=== PATIENT | female | born 1975 | race Caucasian/White ===

== ENCOUNTER 2019-12-03 08:49 | Outpatient (CLI) | payer OTHER, SELFPAY ==
--- NOTE | ~2019-12-03 | MM_ITS ---
EXAMINATION: MM screening [facility] BI w [facility] HISTORY: Screening mammogram TECHNIQUE: Craniocaudal and mediolateral oblique 3-D tomosynthesis images were obtained and synthetic 2-D images were generated. CAD analysis was submitted and interpreted. COMPARISON: 11/27/2018, 10/20/2017, 08/05/2016 BREAST PARENCHYMAL COMPOSITION: There are scattered areas of fibroglandular density. FINDINGS: There are stable asymmetries of the breasts. There is no evidence of suspicious mass, calci fication, or architectural distortion to suggest malignancy in either breast. There has been no suspi cious interval change. IMPRESSION: 1. No mammographic evidence of malignancy. 2. Recommend routine screening mammography in one year. BI-RADS Category 2: Benign finding(s). Reviewed, dictated and finalized at location A.
== END 2019-12-03 08:50 | disposition home or self-care (01) ==
LOC: ANHIMG 08:52
PROVIDERS: PCP Obstetrics & Gynecology; Visit Provider Obstetrics & Gynecology
DX: Z12.31 Encounter for screening mammogram for malignant neoplasm of breast (principal)
CPT/HCPCS: 77063; 77067

== ENCOUNTER 2020-05-29 14:29 | Outpatient (CLI) | payer OTHER, SELFPAY ==
[2020-05-31 01:53] LABS: SARS-CoV-2 RNA PCR Negative
== END 2020-05-29 14:30 | disposition home or self-care (01) ==
LOC: CHSLAB 14:31
PROVIDERS: PCP Family Medicine; Visit Provider Family Medicine
DX: Z20.828 Contact with and (suspected) exposure to other viral communicable diseases (principal)
CPT/HCPCS: 87635; C9803; U0003

== ENCOUNTER 2020-06-10 09:38 | Outpatient (CLI) | payer OTHER, SELFPAY ==
[2020-06-11 14:24] LABS: SARS-CoV-2 RNA PCR Negative
== END 2020-06-10 09:39 | disposition home or self-care (01) ==
LOC: CHSLAB 09:39
PROVIDERS: PCP Family Medicine; Visit Provider Family Medicine
DX: Z20.828 Contact with and (suspected) exposure to other viral communicable diseases (principal)
CPT/HCPCS: 87635; C9803; U0003

== ENCOUNTER 2020-12-08 15:29 | Outpatient (CLI) | payer OTHER, SELFPAY ==
--- NOTE | ~2020-12-08 | MM_ITS ---
EXAMINATION: [place] [facility] [place] HISTORY: Screening TECHNIQUE: Craniocaudal and mediolateral oblique 3-D tomosynthesis images were obtained and synthetic 2-D images were generated. CAD analysis was submitted and interpreted. COMPARISON: Comparison to multiple prior studies sequentially, with oldest reviewed study dated 05/13. BREAST PARENCHYMAL COMPOSITION: Breast composed of scattered areas of fibroglandular density. FINDINGS: There is no evidence of suspicious mass, calcification, or architectural distortion to sugg est malignancy in either breast. There has been no suspicious interval change. IMPRESSION: 1. No mammographic evidence of malignancy. 2. Recommend routine screening mammography in one year. BI-RADS Category 1: Negative Reviewed, dictated and finalized at location A.
== END 2020-12-08 15:30 | disposition home or self-care (01) ==
LOC: ANHIMG 15:33
PROVIDERS: PCP Family Medicine; Visit Provider Obstetrics & Gynecology
DX: Z12.31 Encounter for screening mammogram for malignant neoplasm of breast (principal)
CPT/HCPCS: 77063; 77067

== ENCOUNTER 2021-02-04 18:58 | Outpatient (CLI) | payer OTHER, SELFPAY ==
--- NOTE | ~2021-02-04 | XR_ITS ---
EXAMINATION: XR shoulder RT min 2V DATE: 02/04/2021 19:22 INDICATION: Chronic right shoulder pain TECHNIQUE: AP internally and externally rotated, AP oblique externally rotated and transscapular Y vi ews of the right shoulder were obtained. COMPARISON: None FINDINGS: Normal alignment. No fracture. Glenohumeral joint is normal. Mild acromioclavicular osteoarthritis w ith small heterotopic ossicle along the dorsal joint capsule. Soft tissues are unremarkable. Visualiz ed portions of the lungs are clear. IMPRESSION: Mild right acromioclavicular osteoarthritis. Reviewed, dictated and finalized at location A.
== END 2021-02-04 18:59 | disposition home or self-care (01) ==
LOC: CHSIMG 18:59
PROVIDERS: PCP Family Medicine; Visit Provider Family Medicine
DX: M25.511 Pain in right shoulder (principal)
CPT/HCPCS: 73030

== ENCOUNTER 2021-02-17 16:06 | Outpatient (RCR) | payer OTHER, SELFPAY ==
--- NOTE | 2021-02-19 13:59 | PTOPEVAL ---
Thank you for referring Lucero Rivas to [facility].? The patient is scheduled to be seen for therapy? __2__x/week for 8 visits. Please review, sign, date and return this plan of care JEN. I agree with and certify that the following plan of care is medically necessary. Referring Physician Date Admitting Provider: Attending Provider: Kareem Carson MD Referring Provider: *PT Outpatient Evaluation Start: 02/17/21 16:31 Freq: Status: Active Protocol: Document 02/17/21 16:31 ISAK (Rec: 02/17/21 17:35 ISAK [id number]) Therapy Assessment Status Assessment Status Assessment Status Evaluation Evaluation Information Problem Diagnosis right shoulder pain Onset 10/27/20 Subjective Information Pt. reports that she developed Query Text:As Reported By Patient/ shoulder pain about 4-5 Family months ago. She reports it has worsened over that duration and will radiate in the neck and hand. She reports that her pain irina wake her at night. pt. is taking tramadol and flexeril to help her sleep. 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 She reports she cannot hold babies in her right arm due to pain. She reports that her goal for therapy is to reduce her right shoulder pain. Prior Level of Function Activity Level (Last 3 Months) Occupation daycare worker Hand Dominance Right Activity of Daily Living Ability Independent Indoor/Home Mobility Independent Community Mobility Independent Stairs Ability Independent Functional Cognition (Planning, Shopping Independent , Taking Medications) Cooking Yes Cleaning Yes Laundry Yes Shopping Yes Driving Yes Pain Assessment Timing of Pain Assessment Timing of Pain Assessment Pre-Treatment Pain Scale Pain Scale Used Numeric (1 - 10) Self Report Pain Assessment Right Shoulder(s) Reported Pain Level 5 Pain Description Aching,Stabbing Pain Radiation Right Arm Pain Frequency Continuous Pain Aggravating Factors Lifting Other Pain Aggravating Factors reaching behind her back Pain Score Pain Score 5: Self Report Interventions Used Interventions U
--- NOTE | 2021-02-24 18:11 | PCPTNOTE ---
On 02/24/21, the student, [Estela Kamara, SPT], provided care and completed [facility]a documentation on this patient. I have reviewed the student's documentation and agree with the findings.
--- NOTE | 2021-04-13 14:57 | PCPTNOTE ---
Mr. Rivas attended a total of 5 treatment sessions from 02/17/21 to 03/17/21. She has failed to return to the clinic and contacted the clinic reporting excellent progress and requesting discharge. She will be discharged from our care. Refer to last daily note for pt. discharge status. Masood Chi, MPT
== END 2021-03-17 15:28 | disposition home or self-care (01) ==
LOC: CHSPT 16:06
PROVIDERS: PCP Family Medicine; Visit Provider Family Medicine
DX: M25.511 Pain in right shoulder (principal)
CPT/HCPCS: 97014; 97110; 97140; 97161; G0283

== ENCOUNTER 2021-12-14 08:38 | Outpatient (CLI) | payer BC, SELFPAY ==
--- NOTE | ~2021-12-14 | MM_ITS ---
EXAMINATION: MM screening [facility] HISTORY: Screening mammogram TECHNIQUE: Craniocaudal and mediolateral oblique 3-D tomosynthesis images were obtained and synthetic 2-D images were generated. CAD analysis was submitted and interpreted. COMPARISON: No prior mammogram is available for comparison at this institution. BREAST PARENCHYMAL COMPOSITION: There are scattered areas of fibroglandular density. 6 mm FINDINGS: Questionable spiculated opacity in the outer mid right breast (MLO Tomosynthesis image 21/ 3). Diagnostic right mammogram and right breast ultrasound examination are recommended. Otherwise there is no evidence of suspicious mass, calcification, or architectural distortion to sugg est malignancy in either breast. There has been no other suspicious interval change. IMPRESSION: 1. Questionable spiculated opacity in the outer mid right breast 2. Diagnostic right mammogram and right breast ultrasound examination are recommended BI-RADS Category 0: Incomplete: Needs additional imaging evaluation. Reviewed, dictated and finalized at location A. IMPRESSION: 1. Questionable spiculated opacity in the outer mid right breast 2. Diagnostic right mammogram and right breast ultrasound examination are recom mended BI-RADS Category 0: Incomplete: Needs additional imaging evaluation.
== END 2021-12-14 08:39 | disposition home or self-care (01) ==
LOC: ANHIMG 08:41
PROVIDERS: PCP Family Medicine; Visit Provider Obstetrics & Gynecology
DX: Z12.31 Encounter for screening mammogram for malignant neoplasm of breast (principal); R92.8 Other abnormal and inconclusive findings on diagnostic imaging of breast
CPT/HCPCS: 77063; 77067

== ENCOUNTER 2022-01-11 11:19 | Outpatient (CLI) | payer BC, SELFPAY ==
--- NOTE | ~2022-01-11 | MMUS_ITS ---
EXAMINATION: MM diagnostic [facility] RT w ellen, US breast RT complete HISTORY: Questionable spiculated opacity in the outer mid right breast on 12/14/2021 screening mammogr am TECHNIQUE: Additional 3-D tomosynthesis images of the right breast were performed and synthetic 2-D i mages were generated. CAD analysis was submitted and interpreted. High resolution complete right gato st ultrasound including all 4 quadrants was performed. COMPARISON: 12/14/2021 bilateral screening mammogram FINDINGS: MAMMOGRAPHIC FINDINGS: There is nodular appearing fibroglandular stroma which may obscure small masses. Therefore complete r ight breast ultrasound examination was performed. ULTRASOUND: 3:00: There is an irregular anti-parallel hypoechoic 5.6 x 5.1 x 7.9 mm mass with posterior shadowing , suspicious for malignancy. Ultrasound-guided biopsy is recommended. 8:30: Mildly irregular hypoechoic 2.5 x 2.7 mm mass; this is suspicious. Ultrasound-guided biopsy is recommended. IMPRESSION: 1. . Two suspicious hypoechoic solid masses at 3:00 and 8:30 o'clock 2. Ultrasound-guided biopsy is recommended. BI-RADS category 4, suspicious findings. Dr. Cisneros telephoned the report and ultrasound-guided biopsy recommendation on 01/11/[address] Gorge Nelson Reviewed, dictated and finalized at location A. IMPRESSION: 1. . Two suspicious hypoechoic solid masses at 3:00 and 8:30 o'clock 2. Ultrasound-guided biopsy is recommended. BI-RADS category 4, suspicious findings. Dr. Cisneros telephoned the report and ultrasound-guided biopsy recommendation on at [address] Gorge Nelson
== END 2022-01-11 11:20 | disposition home or self-care (01) ==
LOC: ANHIMG 11:21
PROVIDERS: PCP Family Medicine; Visit Provider Obstetrics & Gynecology
DX: R92.8 Other abnormal and inconclusive findings on diagnostic imaging of breast (principal)
CPT/HCPCS: 76641; 77061; 77065; G0279

== ENCOUNTER 2022-02-10 09:17 | Outpatient (CLI) | payer BC, SELFPAY ==
--- NOTE | ~2022-02-10 | US_ITS ---
EXAMINATION: Consultation US HISTORY: Patient presents for biopsy of right breast masses at 3:00 and 8:30 seen on recent diagnosti c mammogram and ultrasound. TECHNIQUE: Limited ultrasound is performed at 3:00 8:30 in the right breast. FINDINGS: The mass previously described at the 8:30 location is not identified. The mass described at the 3:00 location is difficult to reproduce and on some images appears to represent ligamentous shad owing. This was discussed with the patient and a course of six-month interval follow-up decided upon. IMPRESSION: Probably benign right breast findings. Follow-up right diagnostic mammogram and ultrasound in six mon ths are recommended. BI-RADS category 3, probably benign findings. Reviewed, dictated and finalized at location A. IMPRESSION: Probably benign right breast findings. Follow-up right diagnostic mammogram and ultrasound in six months are recommended. BI-RADS category 3, probably benign findings.
== END 2022-02-10 09:18 | disposition home or self-care (01) ==
PROVIDERS: PCP Family Medicine; Visit Provider Surgery
DX: R92.8 Other abnormal and inconclusive findings on diagnostic imaging of breast (principal)
CPT/HCPCS: 99199

== ENCOUNTER 2022-10-23 07:30 | Outpatient (CLI) | payer BC, SELFPAY ==
--- NOTE | ~2022-10-23 | MR_ITS ---
EXAMINATION: MR brain/brain stem wo con DATE: 10/23/2022 08:18 INDICATION: Migraine headache. Visual disturbance. TECHNIQUE: Magnetic resonance imaging (MRI) of the brain and brainstem was performed without intraven ous contrast. COMPARISON: Brain MRI 10/22/2015 FINDINGS: There are scattered areas of nonspecific increased T2-weighted signal intensity in the cere bral white matter, which is within normal limits for the patient's age. There is no intracranial hemo rrhage, acute infarction, or abnormal intracranial mass lesion. The ventricles are normal in size. Th e orbits are normal. There is mucosal thickening in the paranasal sinuses. There are small bilateral mastoid effusions. IMPRESSION: 1. Normal aging brain. Reviewed, dictated and finalized at location A. OM PRESSER IMPRESSION: 1. Normal aging brain.
== END 2022-10-23 07:31 | disposition home or self-care (01) ==
LOC: CHSIMG 07:32
PROVIDERS: PCP Family Medicine; Visit Provider Family Medicine
DX: G43.909 Migraine, unspecified, not intractable, without status migrainosus (principal); H53.9 Unspecified visual disturbance
CPT/HCPCS: 70551

== ENCOUNTER 2023-02-06 11:30 | Emergency (ER) | payer BC, SELFPAY ==
[2023-02-06 11:37] VITALS: BP 139/98; PULSE 107; RESP 17; TEMP 37.3; O2SAT 99
--- NOTE | 2023-02-06 11:48 | ED.GENADULT ---
HPI - General Adult General Chief complaint: Back Pain/Injury Stated complaint: Back spasm Time Seen by Provider: 02/06/23 11:40 History of Present Illness HPI narrative: The patient is a 47-year-old woman with history of low back pain and spasms, who for the last 2 weeks has had right hip pain. She saw a chiropractor 6 days ago under pain improved after the chiropractor session. Two days ago, she got up from a sitting position when she suddenly noticed severe low back pain. The pain in the lower back has increased. No trauma or falls worsen persist or turns. She took tramadol Flexeril and ibuprofen 800 mg last night and again Flexeril and ibuprofen today without much relief. There is no sciatica component today. No paresthesias or pain down either lower extremity. No abdominal pain or nausea or vomiting or other complaints. Related Data Home Medications Medication Instructions Recorded Confirmed bupropion HCl 150 mg 24 hr tablet, 150 mg PO QAM 01/21/22 02/06/23 extended release multivitamin 1 tablet PO DAILY 01/21/22 02/06/23 cyclobenzaprine 10 mg tablet 10 mg PO DAILY 02/06/23 02/06/23 Allergies Allergy/AdvReac Type Severity Reaction Status Date / Time latex Allergy Unknown REDENED Verified 02/06/23 11:46 HANDS Penicillins Allergy Unknown Hives / Verified 02/06/23 11:46 Red Face codeine AdvReac Unknown Headache Verified 02/06/23 11:46 Sulfa (Sulfonamide AdvReac Unknown Hives Verified 02/06/23 11:46 Antibiotics) 1. coconut Allergy Unknown HIVES Uncoded 02/06/23 11:46 Review of Systems Review of Systems: All systems reviewed & are unremarkable except as noted in HPI and below Constitutional: Constitutional: Denies chills, Denies excessive sweating, Denies fatigue, Denies fever(s), Denies headache(s) and Denies weakness Eyes: Eyes: Denies change in vision and Denies photophobia ENT: Denies dysphagia, Denies dizziness, Denies headache(s), Denies lip swelling, Denies nasal congestion, Denies sore throat and Denies tongue swelling Cardiovascular: Cardiovascular: Denies chest pain, Denies syncope, Denies rapid heart rate and Denies dyspnea Respiratory: Respiratory: Denies cough, Denies dyspnea and Denies wheezing Gastrointestinal: Gastrointestinal: Denies abdominal pain, Denies constipation, Denies dysphagia, Denies diarrhea, Denies nausea and Denies vomiting Genitourinary: Genitourinary: Denies hematuria, Denies urinary frequency, Denies dysuria and Denies urinary urgency Musculoskeletal: Musculoskeletal: Reports back pain, Denies myalgias, Denies arthralgias, Denies joint swelling and Denies numbness Integumentary/Breasts: Skin/Breast: Denies pruritus, Denies erythema and Denies rash Neurologic: Denies confusion, Denies dizziness, Denies syncope, Denies headache(s), Denies focal weakness, Denies numbness and Denies weakness Psychiatric: Psychiatric: Denies anxiety and Denies confusion Endocrine: Endocrine: Denies excessive sweating and Denies fatigue Hematologic/Lymphatic: Hematologic/Lymphatic: Denies easy bleeding and Denies easy bruising Allergic/Immunologic: Allergic/Immunologic: Denies lip swelling, Denies tongue swelling and Denies wheezing PMFSH Past Medical History Medical History Depression History of gastric ulcer Surgical History Surgical History H/O exploratory laparotomy History of knee surgery History of partial hysterectomy Hx of tonsillectomy Family History Family History Other Breast cancer Grandparent Diabetes mellitus Heart disease Pancreatic cancer Social History Social History Smoking packs per day: 0.5 Smoking cigarettes per day: 10.0 Smoking status: Current every day smoker Tobacco type: cigarettes Alcohol intake: current Alcohol use
[2023-02-06] MEDS: ORPHENADRINE CITRATE 30 MG/ML 2 ML VIAL 60 MG IM (12:01)
[2023-02-06] MEDS: HYDROmorphone HCL INJ (*CRX) 2 MG/ML VIAL 1 MG IM (12:02)
[2023-02-06 12:32] LABS: Appearance Urine Clear (Clear); Bilirubin Urine Negative (Negative); Blood Urine Negative (Negative); Color Urine Yellow (Yellow); Glucose Urine UA Negative (Negative); Ketones Urine Negative (Negative); Leukocyte Esterase Ur Negative LEU/UL (Negative); Nitrate Urine Negative (Negative); Protein Urine Negative (Negative); Specific Grav Ur 1.015 (1.010-1.020); Urobilinogen Urine 0.2 mg/dL (0.2-1.0); pH Urine 6.5 (5.0-8.0)
[2023-02-06 12:36] LABS: Add Urine Microscopic? NO
[2023-02-06 12:39] LABS: Amphetamine Screen Urine Negative (Negative); Barbiturate Screen Urine Negative (Negative); Benzodiazepines Screen Urine Negative (Negative); Cannabinoid Screen Urine Negative (Negative); Cocaine Screen Urine Negative (Negative); Methadone Screen Urine Negative (Negative); Opiate Screen Urine Negative (Negative); Phencyclidine Screen Urine Negative (Negative)
[2023-02-06] MEDS: HYDROcodone/acetaminophen (*CRX) 5-325 MG TABLET 1 TAB PO (13:03)
[2023-02-06 13:07] VITALS: BP 124/80; PULSE 88; RESP 18; TEMP 36.9; O2SAT 99
[2023-02-06 13:08] VITALS: BP 124/80; PULSE 80; RESP 17; TEMP 36.2; O2SAT 98
== END 2023-02-06 13:08 | disposition home or self-care (01) ==
PROVIDERS: Emergency Provider Emergency Medicine; PCP Family Medicine
DX: S33.5XXA Sprain of ligaments of lumbar spine, initial encounter (principal); F32.A Depression, unspecified; F17.210 Nicotine dependence, cigarettes, uncomplicated; Z79.899 Other long term (current) drug therapy; X58.XXXA Exposure to other specified factors, initial encounter
CPT/HCPCS: 80307; 81003; 96372; 99284; A9270; J1170; J2360

== ENCOUNTER 2023-02-09 17:26 | Outpatient (CLI) | payer BC, SELFPAY ==
--- NOTE | ~2023-02-09 | XR_ITS ---
EXAMINATION: XR lumbar spine min 4V DATE: 02/09/2023 17:52 INDICATION: Acute onset low back pain TECHNIQUE: Anteroposterior, lateral, and bilateral oblique views of the lumbar spine, and cone-down l ateral view of the lumbosacral junction were obtained. COMPARISON: 03/19/2008 FINDINGS: Hypoplastic riblets at T12. No significant change in 4 degree lumbar levocurvature. Sagittal alignmen t is normal. Chronic mild anterior wedging at 11 and T12. Lumbar vertebral body heights are normal. M ild disc height loss with mild degenerative endplate changes at L2-L3 and L3-L4 as well as in the low er thoracic spine at T10-T11 and T11-T12. No pars interarticularis defects. Old healed fracture of th e right transverse process of L2. Sacrum and bilateral sacroiliac joints are normal. IMPRESSION: 1. Minimal lumbar levocurvature with mild spondylosis. Reviewed, dictated and finalized at location A.
== END 2023-02-09 17:27 | disposition home or self-care (01) ==
LOC: CHSIMG 17:28
PROVIDERS: PCP Family Medicine; Visit Provider Family Medicine
DX: M54.50 Low back pain, unspecified (principal); M43.06 Spondylolysis, lumbar region; M41.86 Other forms of scoliosis, lumbar region
CPT/HCPCS: 72110

== ENCOUNTER 2023-06-23 09:51 | Outpatient (CLI) | payer BC, SELFPAY ==
--- NOTE | ~2023-06-23 | XR_ITS ---
EXAMINATION: XR clavicle RT INDICATION: Right clavicle pain TECHNIQUE: Two views of the right clavicle are obtained. COMPARISON: 02/04/2021 FINDINGS: Bone alignment is normal. There is no fracture. There is mild osteoarthritis at the acromio clavicular joint. IMPRESSION: 1. No acute osseous abnormality. Reviewed, dictated and finalized at location F.
--- NOTE | ~2023-06-23 | XR_ITS ---
Right Shoulder Technique: AP and scapular Y views were obtained. Clinical History: Pain Findings: No fracture or dislocation is seen. Osseous alignment is anatomic. The glenohumeral and acr omioclavicular joint spaces are preserved. Soft tissues are unremarkable. Impression: Unremarkable right shoulder radiographs. Reviewed, dictated and finalized at [facility]. Impression: Unremarkable right shoulder radiographs.
== END 2023-06-23 09:52 | disposition home or self-care (01) ==
LOC: CHSIMG 09:53
PROVIDERS: PCP Family Medicine; Visit Provider Family Medicine
DX: M25.511 Pain in right shoulder (principal)
CPT/HCPCS: 73000; 73030

== ENCOUNTER 2023-07-02 06:47 | Outpatient (CLI) | payer BC, SELFPAY ==
--- NOTE | ~2023-07-02 | MR_ITS ---
EXAMINATION: MR shoulder RT wo con DATE: 07/02/2023 10:41 INDICATION: POPPED SHOULDER IN FEBRUARY/HYPEREXSTENSION, LROM SINCE . TECHNIQUE: Magnetic resonance imaging (MRI) of the shoulder was performed without intravenous contras t. Sequences included axial PD-weighted FS FSE, coronal oblique PD-weighted FS FSE and T2-weighted FS FSE, and sagittal oblique T2-weighted FS FSE and T1-weighted FSE. COMPARISON: X-ray right shoulder 06/15/2023. FINDINGS: Coracoacromial arch: Mild lateral downsloping of the type II acromion. Minimal acromial tip enthesopathy. No subacromial o r subcoracoid narrowing Rotator cuff: 8 mm full-thickness tear of the supraspinatus at its insertion. Focal 5 mm intrasubstance type tear a t the musculotendinous junction of the supraspinatus. Moderate thickening and intermediate signal abn ormality of the superior cuff. Infraspinatus, teres minor, and subscapularis are intact. Biceps tendon and glenoid labrum: Intermediate, longitudinally oriented signal in the long head of biceps tendon. Degenerative change i n the glenoid labrum, without focal tear. Fluid: Minimal subacromial subdeltoid fluid. Mild glenohumeral joint fluid Bones/cartilage: Mild AC joint hypertrophy. Mild glenohumeral narrowing. IMPRESSION: Full-thickness tear of the supraspinatus at its insertion. Focal intrasubstance type tear of the supr aspinatus at the musculotendinous junction. Superior cuff tendinopathy. Tendinopathy of the long head of biceps tendon. Mild subacromial subdeltoid bursitis. Mild glenohumeral osteoarthritis. Reviewed, dictated and finalized at location K. IMPRESSION: Full-thickness tear of the supraspinatus at its insertion. Focal intrasubstance type tear of the supraspinatus at the musculotendinous junction. Superior cuff tendinopathy. Tendinopathy of the long head of biceps tendon. Mild subacromial subdeltoid bursitis. Mild glenohumeral osteoarthritis.
== END 2023-07-02 06:48 | disposition home or self-care (01) ==
LOC: CHSIMG 06:49
PROVIDERS: PCP Family Medicine; Visit Provider Family Medicine
DX: M25.511 Pain in right shoulder (principal); M75.101 Unspecified rotator cuff tear or rupture of right shoulder, not specified as traumatic; M75.51 Bursitis of right shoulder; M19.011 Primary osteoarthritis, right shoulder
CPT/HCPCS: 73221

== ENCOUNTER 2023-07-11 12:56 | Outpatient (RCR) | payer BC, SELFPAY ==
--- NOTE | 2023-07-11 14:00 | PTOPEVAL1 ---
Assessment and note entered by Masood Chi Evaluation Information Assessment Status Evaluation Diagnosis right shoulder adhesive capsulitis Onset 02/24/23 Subjective Information Pt. reports that she was at [employer] and she was on the stepper. She reports that her knee locked and she fell, however was still holding the handrails. She felt a pop in the right shoulder. She reports she attempted chiropractic with stretching and US. She reports that she was progressing then felt another pop and could not lift her arm again. She underwent MRI which revealed a rotator cuff tear. She states that she is getting better and notices most difficulty with reaching overhead. She states that she is right hand dominant. Reported Pain Level Pain Score 1: Self Report Assessment PT Clinical Summary Pt. is a 47 year old female who enters the clinic with a medical diagnosis of right adhesive capsulitis of the shoulder. She presents with indication of rotator cuff syndrome on the right. Pt. currently presents with decreased right shoulder ROM, impaired strength and pain. Continued skilled PT is indicated in order to improve these areas to allow the pt. to be able to complete all IADL's with improved comfort and mobility. Plan of Care Interventions Electrical Stimulation,Hot Pack/Cold Pack,Manual Therapy,Neuro Re-education,Patient/Caregiver Educati,Therapeutic Activities,Therapeutic Exercise PT Services Indicated Yes Treatment Frequency and 1x/week x 6 visits Duration These treatments will address the objective and functional deficits as defined above. The patient will be advanced safely and appropriately in order for the patient to progress towards his/her prior level of function. Additional exercises will be introduced and as well as a comprehensive home exercise program upon discharge, if needed, ?to ensure carryover of functional gains achieved in the clinic. This treatment plan has been reviewed and agreement upon by the patient.
--- NOTE | 2023-07-11 14:01 | OPREHPOC ---
Outpatient Therapy Plan of Care This is a Multidisciplinary Plan of Care that may contain components documented by all disciplines (PT, OT, and ST.) PT Problem 1 PT Problem #1 Knowledge Deficit PT Goal 1 Goal Independent with a HEP addressing mobility resotration and strength Target Visit 2 PT Problem 2 PT Problem #2 Impaired Range of Motion PT Goal 1 Goal Pt. will achieve 165 degrees active shoulder flexion and 90 degrees active right shoulder ER against gravity PT Problem 3 PT Problem #3 Impaired Strength PT Goal 1 Goal Pt. will present with 5/5 proximal right u.e. strength at all muscle groups.
== END 2023-07-18 13:35 | disposition home or self-care (01) ==
LOC: CHSPT 12:56
PROVIDERS: Visit Provider Orthopaedic Surgery
DX: M75.01 Adhesive capsulitis of right shoulder (principal)
CPT/HCPCS: 97014; 97110; 97161; G0283

== ENCOUNTER 2023-12-26 12:22 | Outpatient (CLI) | payer BC, SELFPAY ==
--- NOTE | ~2023-12-26 | MM_ITS ---
EXAMINATION: MM screening [facility] w [facility] HISTORY: Screening TECHNIQUE: Craniocaudal and mediolateral oblique 3-D tomosynthesis images were obtained and synthetic 2-D images were generated. CAD analysis was submitted and interpreted. COMPARISON: Comparison to multiple prior studies sequentially, with oldest reviewed study dated 12/08. BREAST PARENCHYMAL COMPOSITION: Not dense: There are scattered areas of fibroglandular density. FINDINGS: There is no evidence of suspicious mass, calcification, or architectural distortion to sugg est malignancy in either breast. There has been no suspicious interval change. IMPRESSION: 1. No mammographic evidence of malignancy. 2. Recommend routine screening mammography in one year. BI-RADS Category 1: Negative Reviewed, dictated and finalized at location A.
== END 2023-12-26 12:23 | disposition home or self-care (01) ==
LOC: CHSIMG 12:24
PROVIDERS: PCP Family Medicine; Visit Provider Obstetrics & Gynecology
DX: Z12.31 Encounter for screening mammogram for malignant neoplasm of breast (principal)
CPT/HCPCS: 77063; 77067